=== PATIENT | female | born 1990 | race Two or more races ===

== ENCOUNTER 2017-01-10 20:52 | Inpatient (IN) | payer OTHER ==
[~2017-01-10] VITALS: Ht 157.5 cm; Wt 40.4 kg
[2017-01-10] MEDS ORDERED: IV NS 0.9% 1,000 ML BAG IV ONE ×2 (21:30→22:30)
[2017-01-10] MEDS ORDERED: IV SET PRIMARY 1 EA INFUS.SET MC ONE ×2 (21:35→22:55)
[2017-01-10] MEDS ORDERED: IV NS 0.9% 1,000 ML ONE ×2 (21:36→22:55)
[2017-01-10] MEDS ORDERED: AZITHROMYCIN 500 MG in IV D5W 250 ML IV ONE (22:30)
[2017-01-10] MEDS ORDERED: CEFTRIAXONE 1 G in IV D5W 50 ML IV ONE (22:30)
[2017-01-10] MEDS ORDERED: IV D5W 50 ML IV ONE (22:55)
[2017-01-10] MEDS ORDERED: IV SET PRIMARY PUMP SET 1 EA INFUS.SET MC ONE ×2 (22:55→23:25)
[2017-01-10] MEDS ORDERED: CEFTRIAXONE 1 G VIAL ONE (22:55)
[2017-01-10] MEDS ORDERED: diphenhydrAMINE HCL 50 MG/ML VIAL ONE (23:13)
[2017-01-10 23:17] LABS: BASOPHILS % (AUTO) 0.3 % (0.0-2.0); DIFF TOTAL % 100 %; EOSINOPHILS % (AUTO) 0.8 % (0.0-6.0); HEMATOCRIT 41 % (33-45); HEMOGLOBIN 13.7 g/dL (11.5-14.8); LYMPHOCYTES # (AUTO) 1.1 /CMM (0.8-4.8); LYMPHOCYTES % (AUTO) 22.5 % (20.0-44.0); MEAN CORPUSCULAR HEMOGLOBIN 30 PG (26.0-33.0); MEAN CORPUSCULAR HGB CONC 34 g/dl (31.0-36.0); MEAN CORPUSCULAR VOLUME 88 fL (82-100); MONOCYTES # (AUTO) 0.3 /CMM (0.1-1.30); MONOCYTES % (AUTO) 6.1 % (2.0-12.0); NEUTROPHILS # (AUTO) 3.5 /CMM (1.8-8.9); NEUTROPHILS % (AUTO) 70.3 % (43.0-81.0); PLATELET COUNT (AUTO) 161 /CMM (150-450); RED BLOOD CELL COUNT(AUTO) 4.64 MIL/uL (4.0-5.2)
[2017-01-10 23:20] LABS: CALCIUM, SERUM 8.7 mg/dL (8.5-10.1); CREATININE 0.6 mg/dL (0.6-1.3); POTASSIUM 3.9 mmol/L (3.5-5.1)
[2017-01-10] MEDS ORDERED: AZITHROMYCIN 500 MG VIAL ONE (23:25)
[2017-01-10] MEDS ORDERED: IV D5W 250 ML IV ONE (23:25)
[2017-01-10 23:26] LABS: ALBUMIN 3.5 g/dL (3.4-5.0); BILIRUBIN,DIRECT 0.1 mg/dL (0.0-0.2); BILIRUBIN,TOTAL 0.3 mg/dL (0.2-1.0); INDIRECT BILIRUBIN 0.2 mg/dL (0.0-1.1); TOTAL PROTEIN, SERUM 7.6 g/dL (6.4-8.2)
[2017-01-10] MEDS ORDERED: diphenhydrAMINE HCL 50 MG/ML VIAL IV ONE (23:30)
[2017-01-10 23:31] LABS: LACTIC ACID 0.8 mmol/L (0.4-2.0)
[2017-01-10] MEDS ORDERED: IV NS 0.9% 1,000 ML IV PRN (23:37)
[2017-01-10] MEDS ORDERED: ONDANSETRON HCL/PF 4 MG/2 ML VIAL ONE (23:49)
[2017-01-11] MEDS ORDERED: ZOLPIDEM TARTRATE 5 MG TABLET PO PRN
[2017-01-11] MEDS: AZITHROMYCIN 500 MG in IV D5W 250 ML IV SCH ×2
[2017-01-11] MEDS: CEFTRIAXONE 1 G in IV D5W 50 ML IV SCH ×2
[2017-01-11] MEDS ORDERED: MAGNESIUM HYDROXIDE 30 ML UDC PO PRN
[2017-01-11] MEDS ORDERED: Z GUARD REMEDY 2 OZ OINT TP PRN
[2017-01-11] MEDS ORDERED: HYDROCODONE/APAP 5/325MG 1 EACH TABLET PO PRN
[2017-01-11] MEDS ORDERED: MAG HYDROX/AL HYDROX/SIMETH 30 ML UDC PO PRN
[2017-01-11] MEDS ORDERED: ONDANSETRON HCL/PF 4 MG/2 ML VIAL IVP PRN
[2017-01-11 00:30] VITALS: BP 105/64
[2017-01-11] MEDS ORDERED: ONDANSETRON HCL/PF 4 MG/2 ML VIAL IV ONE (00:30)
[2017-01-11] MEDS ORDERED: IV NS 0.9% 1,000 ML ONE (00:37)
[2017-01-11] MEDS ORDERED: IV SET PRIMARY PUMP SET 1 EA INFUS.SET MC ONE (00:37)
[2017-01-11] MEDS ORDERED: ACETAMINOPHEN 325 MG TABLET ONE (01:15)
[2017-01-11] MEDS: ACETAMINOPHEN 325 MG TABLET PO PRN ×3 (01:18→21:59)
[2017-01-11 08:00] VITALS: BP 91/56
[2017-01-11 09:12] LABS: BASOPHILS % (AUTO) 0.2 % (0.0-2.0); DIFF TOTAL % 100 %; EOSINOPHILS % (AUTO) 0.8 % (0.0-6.0); HEMATOCRIT 36 % (33-45); HEMOGLOBIN 12.3 g/dL (11.5-14.8); LYMPHOCYTES # (AUTO) 1.2 /CMM (0.8-4.8); LYMPHOCYTES % (AUTO) 26.8 % (20.0-44.0); MEAN CORPUSCULAR HEMOGLOBIN 29 PG (26.0-33.0); MEAN CORPUSCULAR HGB CONC 34 g/dl (31.0-36.0); MEAN CORPUSCULAR VOLUME 87 fL (82-100); MONOCYTES # (AUTO) 0.5 /CMM (0.1-1.30); MONOCYTES % (AUTO) 11.2 % (2.0-12.0); NEUTROPHILS # (AUTO) 2.8 /CMM (1.8-8.9); PLATELET COUNT (AUTO) 166 /CMM (150-450); RED BLOOD CELL COUNT(AUTO) 4.18 MIL/uL (4.0-5.2); WHITE BLOOD COUNT (AUTO) 4.5 K/uL (4.3-11.0)
[2017-01-11 09:31] LABS: ALBUMIN 2.7 g/dL (3.4-5.0); BILIRUBIN,TOTAL 0.3 mg/dL (0.2-1.0); CALCIUM, SERUM 8.2 mg/dL (8.5-10.1); CREATININE 0.5 mg/dL (0.6-1.3); PHOSPHORUS 3.3 mg/dL (2.5-4.9); POTASSIUM 3.6 mmol/L (3.5-5.1); TOTAL PROTEIN, SERUM 6.2 g/dL (6.4-8.2)
[2017-01-11 09:35] LABS: THYROID STIMULATING HORMONE 0.792 uIU/mL (0.358-3.74)
[2017-01-11] MEDS ORDERED: IV NS 0.9% 1,000 ML IV PRN (12:00)
[2017-01-11] MEDS ORDERED: SECONDARY IV SET 1 EA INFUS.SET MC ONE (12:28)
[2017-01-11] MEDS: IV NS 0.9% 1,000 ML IV PRN (13:49)
[2017-01-11 16:00] VITALS: BP 95/61
[2017-01-11 20:00] VITALS: BP 98/68
[2017-01-12] MEDS ORDERED: SECONDARY IV SET 1 EA INFUS.SET MC ONE (00:03)
[2017-01-12] MEDS: CEFTRIAXONE 1 G in IV D5W 50 ML IV SCH ×2 (00:37→23:37)
[2017-01-12] MEDS: AZITHROMYCIN 500 MG in IV D5W 250 ML IV SCH ×2 (01:18→23:37)
[2017-01-12] MEDS: IV NS 0.9% 1,000 ML IV PRN ×3 (01:18→23:38)
[2017-01-12 08:00] VITALS: BP 96/52
[2017-01-12 16:00] VITALS: BP_SYST 105; BP_SYST 110; BP_DIAS 48; BP_DIAS 73
[2017-01-12] MEDS: LACTOBACILLUS RHAMNOSUS GG 1 EACH CAP.SPRINK PO SCH (17:02)
[2017-01-12 20:00] VITALS: BP_SYST 100; BP_DIAS 61; BP_DIAS 64
[2017-01-12] MEDS: ACETAMINOPHEN 325 MG TABLET PO PRN (20:29)
[2017-01-13 08:00] VITALS: BP 86/49
[2017-01-13 08:08] LABS: ALBUMIN 2.7 g/dL (3.4-5.0); BILIRUBIN,TOTAL 0.2 mg/dL (0.2-1.0); TOTAL PROTEIN, SERUM 6.2 g/dL (6.4-8.2)
[2017-01-13] MEDS: LACTOBACILLUS RHAMNOSUS GG 1 EACH CAP.SPRINK PO SCH (08:14)
[2017-01-13 08:19] LABS: BILIRUBIN,DIRECT 0.1 mg/dL (0.0-0.2); INDIRECT BILIRUBIN 0.1 mg/dL (0.0-1.1)
[2017-01-13] MEDS: ACETAMINOPHEN 325 MG TABLET PO PRN (12:10)
[2017-01-14 04:29] LABS: HEPATITIS C VIRUS AB <0.1 s/co ratio (0.0-0.9)
[2017-01-14 08:12] LABS: HEPATITIS Be AG Negative (Negative)
[2017-01-14 11:33] LABS: HEPATITIS Be AB Negative (Negative)
== END 2017-01-13 12:25 | disposition home or self-care (01) | DRG 871 ==
LOC: ER 20:56 → MED 01-11 00:08
PROVIDERS: ADMIT Contractor; ATTEND Contractor
DX: A41.9 Sepsis, unspecified organism (principal); J15.9 Unspecified bacterial pneumonia; E44.0 Moderate protein-calorie malnutrition; J90 Pleural effusion, not elsewhere classified; Z68.1 Body mass index [BMI] 19.9 or less, adult; J40 Bronchitis, not specified as acute or chronic; R74.0 Nonspecific elevation of levels of transaminase and lactic acid dehydrogenase [LDH]
CPT/HCPCS: 36415; 71010-TC; 76705-TC; 80048-TC; 80053-TC; 80061-TC; 80076-TC; 83605-TC; 83735-TC; 84100-TC; 84443-TC; 84703-TC; 85025-TC; 86632; 86704; 86705; 86706; 86707; 86709; 86709-TC; 86738; 86803; 87040-TC; 87081-TC; 87350; 87400; A4606; J0456; J0696; J1200; J2405; J7030; J7060; Z7610

== ENCOUNTER 2017-01-20 20:17 | Emergency (ER) | payer OTHER ==
[~2017-01-20] VITALS: Ht 154.9 cm; Wt 40.8 kg
[2017-01-20 21:44] VITALS: BP 112/68
== END 2017-01-20 21:45 | disposition home or self-care (01) ==
LOC: ER 20:17
DX: J18.9 Pneumonia, unspecified organism (principal); Z98.890 Other specified postprocedural states
CPT/HCPCS: 71010; 99283; A4606; Z7610

== ENCOUNTER 2017-12-16 19:34 | Emergency (ER) | payer OTHER ==
[~2017-12-16] VITALS: Ht 154.9 cm; Wt 43.1 kg
[2017-12-16 19:47] VITALS: BP 97/68
--- NOTE | 2017-12-16 20:15 | NUR ---
URINE COLLECTED SENT TO LAB
== END 2017-12-16 21:13 | disposition home or self-care (01) ==
LOC: ER 19:35
DX: R05 Cough (principal); Z32.01 Encounter for pregnancy test, result positive
CPT/HCPCS: 84703; 99282; A4606; Z7610

== ENCOUNTER 2018-03-03 14:06 | Emergency (ER) | payer OTHER ==
[~2018-03-03] VITALS: Ht 154.9 cm; Wt 40.4 kg
[2018-03-03] MEDS ORDERED: ONDANSETRON HCL/PF 4 MG/2 ML VIAL ONE (14:40)
[2018-03-03] MEDS ORDERED: ONDANSETRON HCL/PF 4 MG/2 ML VIAL IVP ONE (15:00)
[2018-03-03] MEDS ORDERED: IV NS 0.9% 1,000 ML BAG IV ONE ×2 (15:00)
[2018-03-03 15:01] LABS: CALCIUM, SERUM 9.2 mg/dL (8.5-10.1); CREATININE 0.4 mg/dL (0.6-1.3); POTASSIUM 3.4 mmol/L (3.5-5.1)
[2018-03-03] MEDS ORDERED: POTASSIUM CHLORIDE 20 MEQ TAB.PRT.SR PO ONE ×2 (16:00→16:04)
[2018-03-03 16:03] LABS: APPEARANCE,URINE Cloudy (CLEAR); BILIRUBIN,URINE Negative (NEGATIVE); BLOOD, URINE Negative Ery/uL (NEGATIVE); COLOR,URINE Yellow (YELLOW); KETONES,URINE 80 (NEGATIVE); LEUKOCYTE ESTERASE ,URINE Small (NEGATIVE); NITRITE, URINE Negative (NEGATIVE); PH,URINE 7.5 (5.0-8.0); PROTEIN,URINE 30 mg/dl (NEGATIVE); UGLUCOSE Negative (NEGATIVE); UROBILINOGEN,URINE 0.2 EU/dL (0.2)
[2018-03-03 16:25] LABS: BACTERIA,URINE Moderate /HPF (None Seen); RBC,URINE 0-2 /HPF (0-2); SQUAMOUS EPITHELIAL CELL,UR Moderate /HPF (None Seen)
[2018-03-03 16:26] LABS: URINE AMORPHOUS PHOSPHATES Many /HPF (None Seen)
[2018-03-03 16:58] VITALS: BP 110/79
== END 2018-03-03 16:59 | disposition home or self-care (01) ==
LOC: ER 14:11
DX: O21.1 Hyperemesis gravidarum with metabolic disturbance (principal); O99.282 Endocrine, nutritional and metabolic diseases complicating pregnancy, second trimester; E87.6 Hypokalemia; E86.0 Dehydration; R82.4 Acetonuria; Z3A.15 15 weeks gestation of pregnancy
CPT/HCPCS: 36415; 80048-TC; 81000-TC; 87086-TC; A4606; J2405; J7030; Z7610

== ENCOUNTER 2019-04-27 20:40 | Emergency (ER) | payer OTHER ==
[~2019-04-27] VITALS: Ht 154.9 cm; Wt 43.1 kg
[2019-04-27] MEDS ORDERED: IV NS 0.9% 1,000 ML BAG IV ONE (22:00)
[2019-04-27] MEDS ORDERED: KETOROLAC TROMETHAMINE INJ 30 MG/ML VIAL IV ONE (22:00)
[2019-04-27] MEDS ORDERED: PENICILLIN V POTASSIUM 500 MG TABLET PO ONE ×2 (22:00→23:17)
[2019-04-27] MEDS ORDERED: ONDANSETRON HCL/PF 4 MG/2 ML VIAL IV ONE (22:00)
[2019-04-27] MEDS ORDERED: DEXAMETHASONE SOD PHOSPHATE 10 MG/ML VIAL IV ONE (22:00)
[2019-04-27] MEDS ORDERED: ONDANSETRON HCL/PF 4 MG/2 ML VIAL ONE (22:43)
[2019-04-27] MEDS ORDERED: DEXAMETHASONE SOD PHOSPHATE 10 MG/ML VIAL ONE (23:16)
[2019-04-27] MEDS ORDERED: KETOROLAC TROMETHAMINE 15 MG/ML VIAL ONE (23:16)
--- NOTE | 2019-04-27 23:43 | NUR ---
PT OK TO DISCHARGE HOME PER VELIA SHAW. IV removed. Catheter intact and site benign. Pressure and 4x4 applied to site. No bleeding noted.Patient discharged to home in stable condition. Written and verbal after care instructions given. Patient verbalizes understanding of instruction.Patient is awake and alert to self, day, and place. pT ambulatory with a steady gait
[2019-04-27 23:44] VITALS: BP 112/65
== END 2019-04-27 23:45 | disposition home or self-care (01) ==
LOC: ER 20:41
DX: J02.0 Streptococcal pharyngitis (principal); R11.2 Nausea with vomiting, unspecified; H92.01 Otalgia, right ear; Z98.890 Other specified postprocedural states
CPT/HCPCS: 36415; 84702; 84703; 96361; 96374; 96375; 99283; J1100; J1885; J2405; J7030

== ENCOUNTER 2022-05-17 15:12 | Emergency (ER) | payer OTHER ==
[~2022-05-17] VITALS: Ht 154.9 cm; Wt 45.4 kg
[2022-05-17 15:27] VITALS: BP 103/65
--- NOTE | 2022-05-17 15:30 | NUR ---
BIBS FOR COUGH X 2 WEEKS. OXYGEN SATURATION IN ROOM AIR IS AT 98%. RESPIRATION REGULAR AND UNLABORED. WILL CONTINUE TO MONITOR THE PATIENT.
[2022-05-17] MEDS ORDERED: PRED20TA PO (17:11)
[2022-05-17] MEDS ORDERED: BENZ-13 PO (17:11)
[2022-05-17] MEDS ORDERED: ALBU18HF2 INH (17:11)
--- NOTE | 2022-05-17 17:28 | NUR ---
Patient discharged to home in stable condition. Written and verbal after care instructions given. Patient verbalizes understanding of instruction.
== END 2022-05-17 17:28 | disposition home or self-care (01) ==
LOC: ER 15:15
DX: R05.9 Cough, unspecified (principal); Z98.890 Other specified postprocedural states; Z79.899 Other long term (current) drug therapy
CPT/HCPCS: 71045-TC

== ENCOUNTER 2022-10-10 21:22 | Inpatient (IN) | payer OTHER ==
[~2022-10-10] VITALS: Ht 157.5 cm; Wt 48.5 kg
[~2022-10-10 21:22] MED LIST: ALBU18HF2 INH; BENZ-13 PO; PRED20TA PO
--- NOTE | 2022-10-10 21:27 | NUR ---
[id number]. SOB X 2 HRS, BACK PAIN AND FEVER. FLU LIKE SYMPTOMS X2 DAYS. NOTED TACHY AND HYPOTENSIVE TESTED COVID NEGATIVE TODAY AT HOME. PT A/OX4. TOLERATING R/A AT 98%. CONNECTED PT TO POX AND MONITOR. SAFETY MEASURES IN PLACE.
--- NOTE | 2022-10-10 21:49 | NUR ---
COVID ANTIGEN SWAB AND INFLUENZA SWAB COLLECTED AND SENT TO LAB
[2022-10-10] MEDS ORDERED: KETOROLAC TROMETHAMINE 15 MG/ML VIAL ONE (21:51)
--- NOTE | 2022-10-10 21:55 | NUR ---
WAIVER FOR SIGNED; PT VERBALIZED UNDERSTANDING. NOTIFIED RADIOLOGY
--- NOTE | 2022-10-10 21:59 | NUR ---
DIRECTOR OF NURSES REGISTRY AT PT'S BEDSIDE
[2022-10-10] MEDS ORDERED: IV NS 0.9% 1,000 ML IV ONE (22:00)
[2022-10-10] MEDS ORDERED: KETOROLAC TROMETHAMINE INJ 30 MG/ML VIAL IV ONE (22:00)
--- NOTE | 2022-10-10 22:00 | NUR ---
Note undone in EDM - 10/10/22 at 2201 by RICARDO [id number]. SOB X 2 HRS, BACK PAIN AND FEVER. FLU LIKE SYMPTOMS X2 DAYS. NOTED TACHY AND HYPOTENSIVE TESTED COVID NEGATIVE TODAY AT HOME. PT A/OX4. TOLERATING R/A AT 98%. CONNECTED PT TO POX AND MONITOR. SAFETY MEASURES IN PLACE.
[2022-10-10 22:18] LABS: HEMATOCRIT 39 % (33-45); LYMPHOCYTES # (AUTO) 0.3 K/uL (0.8-4.8); LYMPHOCYTES % (AUTO) 3.9 % (20.0-44.0); MEAN CORPUSCULAR HGB CONC 33 g/dl (31.0-36.0); MEAN CORPUSCULAR VOLUME 87 fL (82-100); MONOCYTES # (AUTO) 0.3 K/uL (0.1-1.30); MONOCYTES % (AUTO) 4.2 % (2.0-12.0); NEUTROPHILS # (AUTO) 7.1 K/uL (1.8-8.9); NEUTROPHILS % (AUTO) 91.9 % (43.0-81.0); PLATELET COUNT (AUTO) 120 K/uL (150-450); WHITE BLOOD COUNT (AUTO) 7.8 K/uL (4.3-11.0)
[2022-10-10 22:45] LABS: CALCIUM, SERUM 8.6 mg/dL (8.5-10.1); CREATININE 0.8 mg/dL (0.6-1.3); POTASSIUM 3.6 mmol/L (3.5-5.1)
[2022-10-10] MEDS ORDERED: IOHEXOL-350 100 ML VIAL IV ONE (22:47)
[2022-10-10] MEDS ORDERED: CT SWABBABLE VALVE TRANS SET 1 EA INFUS.SET MC ONE (22:48)
[2022-10-10] MEDS ORDERED: IV NS 0.9% 250 ML IV ONE (22:48)
--- NOTE | 2022-10-10 22:48 | NUR ---
PT TOLERATING R/A AT 90% WITH SOB & LABORED BREATHING. PUT ON O2 N/C AT 3LPM SATTING AT 95%. WILL REASSESS
[2022-10-10] MEDS ORDERED: IV NS 0.9% 500 ML IV ONE (23:00)
[2022-10-10] MEDS ORDERED: MORPHINE SULFATE INJ 2 MG/ML DISP.SYRIN IV ONE (23:00)
[2022-10-10] MEDS ORDERED: MORPHINE SULFATE INJ 4 MG/ML DISP.SYRIN ONE (23:04)
--- NOTE | 2022-10-10 23:07 | NUR ---
PT TAKEN TO CT VIA [facility]
--- NOTE | 2022-10-10 23:15 | NUR ---
PT RETURNED TO ER BED [address]
--- NOTE | 2022-10-10 23:30 | NUR ---
CALLED LAB TO F/U WITH INFLUENZA SWAB RESULT
[2022-10-10] MEDS ORDERED: CEFTRIAXONE 1GM BAG (ER ONLY) 50 ML IV ONE (23:41)
[2022-10-10] MEDS ORDERED: AZITHROMYCIN 500 MG VIAL ONE (23:42)
[2022-10-11] VITALS (23 sets, daily range): BP systolic 85–103; BP diastolic 48–67
[2022-10-11] MEDS ORDERED: ONDANSETRON HCL/PF 4 MG/2 ML VIAL IVP PRN
[2022-10-11] MEDS ORDERED: CEFTRIAXONE 1GM BAG (ER ONLY) 1 GM/50 ML PIGGYBACK IV ONE
[2022-10-11] MEDS ORDERED: AZITHROMYCIN 500 MG in IV D5W 250 ML IV ONE ×2
[2022-10-11] MEDS ORDERED: ALBUTEROL FS 2.5 MG/0.5 ML VIAL.NEB NEB PRN
--- NOTE | 2022-10-11 00:03 | NUR ---
POLICE RECORDS CLERK AT PT'S BEDSIDE
--- NOTE | 2022-10-11 00:24 | NUR ---
COVID PCR SWAB COLLECTED AND SENT TO LAB
--- NOTE | 2022-10-11 00:52 | NUR ---
REPORT GIVEN TO ZELDA De Leon RN FOR ELYSSA
[2022-10-11] MEDS ORDERED: CEFEPIME 2 GM in IV D5W 100 ML IV ONE ×2 (01:00→05:00)
[2022-10-11] MEDS: IV NS 0.9% 1,000 ML IV SCH ×3 (01:11→15:40)
--- NOTE | 2022-10-11 01:15 | NUR ---
RN NOTE 0115 RECEIVED 32 Y/O F PATIENT FROM ER. TRANSFERRED VIA GURNEY ACCOMPANIED BY 2 ER STAFF. PT IS A/O X4 ABLE TO MAKE NEEDS KNOWN. ON O2 VIA NC AT 2LPM. NO ACUTE DISTRESS NOTED, ADMISSION CARE RENDERED, SKIN IS INTACT, IV ACCESS ON RAC INTACT, PATENT AND FLUSHING WELL. PT AMBULATES WITH ASSIST. 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 CALLED ER STAFF, BELONGINGS NOT FOUND. SAFETY MEASURES IN PLACED, BED IN LOWEST AND LOCKED POSITION, CALL LIGHT WITHIN REACH AND INSTRUCTED TO CALL FOR ASSISTANCE, BED ALARM ON, WILL CONTINUE TO MONITOR THROUGHOUT THE SHIFT. Addendum: 10/11/22 at 0632 by ZELDA PARRISH RN V/S TAKEN AT 87/52, 109 HR, 18, 98.1, 97%
--- NOTE | 2022-10-11 01:22 | NUR ---
PT TRANSFERRED TO [facility] VIA ACLS PROTOCOL
[2022-10-11] MEDS ORDERED: IPRATROPIUM/ALBUTEROL INHALER IH SCH (01:30)
[2022-10-11] MEDS: methylPREDNISolone SOD SUCC 40 MG/ML VIAL IV SCH ×2 (02:06→05:16)
--- NOTE | 2022-10-11 02:25 | NUR ---
RN NOTE NOTED PT BP AT 87/52 AND RECEIVED CRITICAL RESULT FROM LAB OF PROCALCITONIN 3.22. GENERAL MANAGER DR. COBB MADE AWARE. HE THEN ORDERED NS 1L BOLUS AND MIDODRINE 10 MG PO ONCE. ORDER TAKEN AND CARRIED OUT. WILL CONT TO MONITOR.
[2022-10-11] MEDS ORDERED: IV NS 0.9% 1,000 ML IV ONE ×3 (02:30→04:20)
[2022-10-11] MEDS ORDERED: MIDODRINE HCL (5MG) 5 MG TABLET PO ONE (02:30)
--- NOTE | 2022-10-11 04:08 | NUR ---
RN NOTE NOTED PT BP AT 84/47 AFTER 1L BOLUS OF NS AND MIDODRINE 10 MG PO. SAW CLEANER BERJ ORDERED ONE MORE BOLUS OF 1L NS. UPGRADE TO ICU AND START LEVOPHED IF IT DOESN'T WORK. ORDER TAKEN AND CARRIED OUT.
[2022-10-11] MEDS ORDERED: CEFEPIME 1 GM VIAL ONE (05:21)
--- NOTE | 2022-10-11 05:50 | NUR ---
RN NOTE REPORT GIVEN TO HERNANDEZ ARANGO FOR CONTINUITY OF CARE.
[2022-10-11] MEDS ORDERED: NOREPINEPHRINE 8 MG in IV NS 0.9% 242 ML IV PRN ×2 (06:00→07:00)
--- NOTE | 2022-10-11 06:00 | NUR ---
RN NOTE BP STILL LOW AT 90/42. LEVOPHED ORDERED PHARMACY TO DOSE AND TRANSFER PATIENT TO ICU.
[2022-10-11 06:41] LABS: BASOPHILS # (AUTO) 0.1 K/uL (0.0-0.2); BASOPHILS % (AUTO) 0.7 % (0.0-2.0); HEMATOCRIT 33 % (33-45); LYMPHOCYTES # (AUTO) 0.2 K/uL (0.8-4.8); MEAN CORPUSCULAR HGB CONC 34 g/dl (31.0-36.0); MEAN CORPUSCULAR VOLUME 87 fL (82-100); MONOCYTES # (AUTO) 0.1 K/uL (0.1-1.30); MONOCYTES % (AUTO) 1.4 % (2.0-12.0); NEUTROPHILS # (AUTO) 8.9 K/uL (1.8-8.9); NEUTROPHILS % (AUTO) 95.9 % (43.0-81.0); PLATELET COUNT (AUTO) 113 K/uL (150-450); RED BLOOD CELL COUNT(AUTO) 3.76 MIL/uL (4.0-5.2); WHITE BLOOD COUNT (AUTO) 9.2 K/uL (4.3-11.0)
[2022-10-11 07:13] LABS: ALBUMIN 2.5 g/dL (3.4-5.0); BILIRUBIN,TOTAL 0.7 mg/dL (0.2-1.0); CALCIUM, SERUM 7.1 mg/dL (8.5-10.1); CREATININE 0.5 mg/dL (0.6-1.3); MAGNESIUM 1.4 mg/dL (1.8-2.4); PHOSPHORUS 2.1 mg/dL (2.5-4.9); POTASSIUM 3.4 mmol/L (3.5-5.1); TOTAL PROTEIN, SERUM 5.4 g/dL (6.4-8.2)
--- NOTE | 2022-10-11 07:15 | NUR ---
RN OPEN NOTE PATIENT IS ALERT , ORIENTED TIMES 4 ,VERY WEAK , PATIENT IS ON O2 2L ANC, O2 SAT 96 % , ON MONITOR ST 102, PATIENT CAN AMBULATE WITH ASSISTANCE WITH BATHROOM PRIVILEGE.PATIENT IS ON REGULAR DIET , HAS IV ACCESS ON RAC 20 G , N/S RUNNING AR 125 ML/HR PATIENT WAS TRANSFERRED TO THE ICU DUE TO LOW BP , AT THE TIME OF THE TRANSFER , PATIENT HAD BP 92/63 , HR 101.WILL CONTINUW TO MONITOR AND FALLOW POC.
[2022-10-11] MEDS: IPRATROPIUM NEB FS 0.5 MG/2.5 ML AMPUL.NEB NEB SCH ×3 (07:35→19:21)
[2022-10-11] MEDS: ALBUTEROL FS 2.5 MG/0.5 ML VIAL.NEB NEB SCH ×3 (07:35→19:21)
[2022-10-11] MEDS ORDERED: IV NS 0.9% 500 ML IV ONE (08:00)
[2022-10-11] MEDS ORDERED: POTASSIUM CHLORIDE 20 MEQ TAB.PRT.SR PO ONE (08:00)
[2022-10-11] MEDS: ACETAMINOPHEN 325 MG TABLET PO PRN (08:26)
[2022-10-11] MEDS: ENOXAPARIN SODIUM 40 MG/0.4 ML DISP.SYRIN SQ SCH (08:42)
[2022-10-11] MEDS: MORPHINE SULFATE INJ 2 MG/ML DISP.SYRIN IV PRN ×3 (09:27→18:59)
[2022-10-11] MEDS: LEVOFLOXACIN 750 MG /D5W 150ML 150 ML IV SCH (09:41)
[2022-10-11] MEDS: Magnesium 1GM/D5W 100ML PREMIX 100 ML IV SCH ×4 (11:03→14:29)
[2022-10-11] MEDS ORDERED: K PHOS NEUTRAL 250 MG TABLET PO ONE (13:00)
[2022-10-11] MEDS: CEFEPIME 2 GM in IV D5W 100 ML IV SCH ×2 (13:29→20:51)
--- NOTE | 2022-10-11 18:37 | NUR ---
RN CLOSING NOT PATIENT IS IB BED ALERT , ORIENTED TIMES 4 ,VERY WEAK , BUT ABLE TO AMBULATE TO THE RESTROOM WITH ASSISTANCE ,PATIENT IS ON O2 2L ANC, O2 SAT 96 % , ON MONITOR SR 87 PATIENT IS ON REGULAR DIET , HAS IV ACCESS ON RAC 20 G ,AND MID LINE 18 G RIGHT UPPER ARM WITH N/S RUNNING AR 125 ML/HR , ALL MEDICATIONS WERE ADMINISTERED ALL NEEDS WERE MET BED IS AT LOWEST POSITION , CALL LIGHT WITHIN REACH , BED SIDE RAILS ARE UP .WILL ENDORSE ENGINEERING SCIENTIST NURSE TO MONITOR AND FALLOW POC.
--- NOTE | 2022-10-11 19:30 | NUR ---
RN NOTE RECEIVED PT AWAKE, AOX4. ON O2 AT 2L VIA NC. SOME SOB WHEN COUGHING, NOT IN DISTRESS. O2 SAT AT 98%. AFEBRILE. PARKER ML AND RAC IV PATENT AND INTACT, NS RUNNING AT 125ML/HR. ALL SAFETY MEASURES IN PLACE PER PROTOCOL. CALL LIGHT WITHIN REACH. WILL CONTINUE TO MONITOR.
[2022-10-12] VITALS (24 sets, daily range): BP systolic 87–114; BP diastolic 52–77
[2022-10-12] MEDS: IV NS 0.9% 1,000 ML IV SCH ×2 (00:16→08:05)
[2022-10-12] MEDS: ACETAMINOPHEN 325 MG TABLET PO PRN ×2 (00:27→16:08)
[2022-10-12] MEDS: ALBUTEROL FS 2.5 MG/0.5 ML VIAL.NEB NEB SCH ×5 (01:03→19:43)
[2022-10-12] MEDS: IPRATROPIUM NEB FS 0.5 MG/2.5 ML AMPUL.NEB NEB SCH ×5 (01:03→19:43)
[2022-10-12] MEDS: CEFEPIME 2 GM in IV D5W 100 ML IV SCH ×3 (04:49→20:36)
[2022-10-12 05:31] LABS: HEMATOCRIT 31 % (33-45); HEMOGLOBIN 10.5 g/dL (11.5-14.8); LYMPHOCYTES # (AUTO) 1.2 K/uL (0.8-4.8); LYMPHOCYTES % (AUTO) 6.3 % (20.0-44.0); MEAN CORPUSCULAR HGB CONC 34 g/dl (31.0-36.0); MEAN CORPUSCULAR VOLUME 88 fL (82-100); MONOCYTES # (AUTO) 0.7 K/uL (0.1-1.30); NEUTROPHILS # (AUTO) 16.6 K/uL (1.8-8.9); NEUTROPHILS % (AUTO) 89.7 % (43.0-81.0); PLATELET COUNT (AUTO) 158 K/uL (150-450); RED BLOOD CELL COUNT(AUTO) 3.55 MIL/uL (4.0-5.2); WHITE BLOOD COUNT (AUTO) 18.5 K/uL (4.3-11.0)
[2022-10-12 05:41] LABS: CALCIUM, SERUM 7.3 mg/dL (8.5-10.1); CREATININE 0.6 mg/dL (0.6-1.3); PHOSPHORUS 2.9 mg/dL (2.5-4.9)
--- NOTE | 2022-10-12 07:00 | NUR ---
RN NOTE PT ABLE TO MAKE NEEDS KNOWN. PT O2 SAT 92 % AT 2L, TITRATED TO 4L, TOLERATING. PT WITH SOB WHEN COUGHING AND WALKING, ASSISTED TO RESTROOM. REMAIN AFEBRILE. SR ON TELE MONITOR WITH HR OF 64. HR GOES TO SB 55 WHEN SLEEPING. CONTINUE ON NS AT 125ML/HR, INFUSING WELL. ENDORSED TO ALDRED FOR ELYSSA.
--- NOTE | 2022-10-12 07:20 | NUR ---
REIMBURSEMENT COORDINATOR OPENING NOTE: RECEIVED PT. IN BED, AWAKE, AOX4. COMPLAINTS OF CHEST PAIN WHEN COUGHING AND 3/10 ACHING LOWER BACK PAIN, REFUSED PAIN MED FOR NOW. EDUCATED ON IMPORTANCE OF PAIN MANAGEMENT TIMING. AFEBRILE. VERBALIZED UNDERSTANDING. ON O2 VIA NASAL CANNULA AT 4L/MIN, SATURATING AT 98% AT THIS TIME. TACHYPNEIC AT 25 BPM. PRODUCT EVANGELIST READS NSR. HAS BATHROOM PRIVILEGE WITH ASSISTANCE. SKIN INTACT. IV ACCESS ON PARKER MIDLINE WITH NS RUNNING AT 125 ML/HR; R AC #20G, PATENT AND SALINE LOCKED. IV DRESSINGS C/D/I WITH NO S/S OF INFILTRATION NOTED. SAFETY MEASURES IN PLACE: BED IN LOWEST AND LOCKED POSITION, HOB ELEVATED AT 30 DEGREES, BED ALARM ON, SIDE RAILS UP X2, CALL LIGHT WITHIN REACH. WILL ENCOURAGE FREQUENT REPOSITIONING IN BED AT LEAST Q2H. WILL CONTINUE TO MONITOR FOR ANY CHANGES.
[2022-10-12] MEDS: ENOXAPARIN SODIUM 40 MG/0.4 ML DISP.SYRIN SQ SCH (08:06)
[2022-10-12] MEDS ORDERED: HYDROCODONE/APAP 5/325MG TABLET PO PRN (08:30)
[2022-10-12] MEDS: LEVOFLOXACIN 750 MG /D5W 150ML 150 ML IV SCH (09:08)
[2022-10-12] MEDS: DOCUSATE SODIUM 100 MG CAPSULE PO SCH ×2 (09:08→16:09)
--- NOTE | 2022-10-12 09:29 | NUR ---
ROOF FITTER NOTE: PT. COMPLAINED OF 7/10 ACHING LOWER BACK PAIN THAT SHE SAID "I THINK IT'S FROM COUGHING. MY BACK MUSCLES FEEL TIGHT" AT 0815. NORCO 5-325 GIVEN AT 0827. PT. NOW VERBALIZED PAIN RELIEF. WILL CONTINUE TO MONITOR PT.'S PAIN.
--- NOTE | 2022-10-12 16:10 | NUR ---
CYBER SOFTWARE ENGINEER NOTE: PT. COMPLAINED OF 3/10 ACHING LOWER BACK PAIN. TYLENOL 650 MG PO GIVEN. WILL CONTINUE TO MONITOR PT.'S PAIN.
--- NOTE | 2022-10-12 19:11 | NUR ---
LEAD ASSEMBLER CLOSING NOTE: PT. REMAINS IN BED, AWAKE, AOX4. NO COMPLAINTS OF PAIN/DISCOMFORT AT THIS TIME. GIVEN NORCO 5-325 AND TYLENOL 650MG THIS SHIFT FOR LOWER BACK PAIN. AFEBRILE THROUGHOUT SHIFT. REMAINS ON O2 VIA NASAL CANNULA AT 4L/MIN, SATURATING AT 95% AT THIS TIME. TACHYPNEIC AT 27 BPM. BUSINESS PROCESS REPRESENTATIVE READS NSR. HAS BATHROOM PRIVILEGE WITH ASSISTANCE. TOTAL URINE OUTPUT OF 1,150 ML CLEAR YELLOW URINE. PT. REMAINS WEAK TO GET OUT OF BED BY HERSELF WITH PERIODS OF DIZZINESS WHEN STANDING UP. IV ACCESS ON PARKER MIDLINE & R AC #20G, PATENT AND SALINE LOCKED. IV DRESSINGS C/D/I WITH NO S/S OF INFILTRATION NOTED. IV FLUID STOPPED AT [address] BEARD DUE TO INCREASED PULMONARY VASCULAR CONGESTION. ORAL INTAKE TOLERATING WELL WITH GOOD APPETITE. FAMILY BROUGHT FOOD FROM HOME FOR LUNCH AND WILL DO THE SAME FOR DINNER. SAFETY MEASURES MAINTAINED: BED IN LOWEST AND LOCKED POSITION, HOB ELEVATED AT 30 DEGREES, BED ALARM ON, SIDE RAILS UP X2, CALL LIGHT WITHIN REACH. ENCOURAGED FREQUENT REPOSITIONING IN BED AT LEAST Q2H. ENDORSED CONTINUITY OF CARE TO GLASS INSPECTOR RN.
--- NOTE | 2022-10-12 20:00 | NUR ---
Received patient AA/OX4.Afebrile SR in no acute distress.With O2 4LNC saturation 97%.Family here brought food from home.Ate with appetite.Independent with ADL.Safety precaution implemented. Continue to monitor.
[2022-10-13] VITALS (49 sets, daily range): BP systolic 81–156; BP diastolic 50–93
[2022-10-13] MEDS: ACETAMINOPHEN 325 MG TABLET PO PRN ×3 (00:09→18:37)
--- NOTE | 2022-10-13 01:00 | NUR ---
Patient medicated with tylenol for headache with relief.
[2022-10-13] MEDS: ALBUTEROL FS 2.5 MG/0.5 ML VIAL.NEB NEB SCH ×4 (01:30→19:30)
[2022-10-13] MEDS: IPRATROPIUM NEB FS 0.5 MG/2.5 ML AMPUL.NEB NEB SCH ×4 (01:30→19:30)
[2022-10-13] MEDS ORDERED: NOREPINEPHRINE 8MG/250ML RTU 250 ML IV ONE (03:06)
--- NOTE | 2022-10-13 03:10 | NUR ---
Patient hemodynamically unstable BP 81/50.Levophed gtt started 0.1 mcg per protocol.Will titrate accordingly.
[2022-10-13] MEDS: MORPHINE SULFATE INJ 2 MG/ML DISP.SYRIN IV PRN (03:41)
[2022-10-13] MEDS: CEFEPIME 2 GM in IV D5W 100 ML IV SCH ×3 (05:04→21:58)
[2022-10-13 05:11] LABS: BASOPHILS % (AUTO) 0.1 % (0.0-2.0); EOSINOPHILS % (AUTO) 0.2 % (0.0-6.0); HEMATOCRIT 32 % (33-45); HEMOGLOBIN 10.9 g/dL (11.5-14.8); LYMPHOCYTES # (AUTO) 1.8 K/uL (0.8-4.8); LYMPHOCYTES % (AUTO) 13.9 % (20.0-44.0); MEAN CORPUSCULAR HGB CONC 34 g/dl (31.0-36.0); MEAN CORPUSCULAR VOLUME 86 fL (82-100); MONOCYTES # (AUTO) 0.6 K/uL (0.1-1.30); MONOCYTES % (AUTO) 4.2 % (2.0-12.0); NEUTROPHILS # (AUTO) 10.8 K/uL (1.8-8.9); NEUTROPHILS % (AUTO) 81.6 % (43.0-81.0); PLATELET COUNT (AUTO) 169 K/uL (150-450); RED BLOOD CELL COUNT(AUTO) 3.73 MIL/uL (4.0-5.2); WHITE BLOOD COUNT (AUTO) 13.2 K/uL (4.3-11.0)
[2022-10-13 05:33] LABS: CALCIUM, SERUM 8.1 mg/dL (8.5-10.1); CREATININE 0.5 mg/dL (0.6-1.3); POTASSIUM 3.2 mmol/L (3.5-5.1)
--- NOTE | 2022-10-13 05:50 | NUR ---
0341 Patient anxious and complaints of [id number]/10 morphine administered as PRN. Patient sleeping after 30 min. during rounds.
--- NOTE | 2022-10-13 06:05 | NUR ---
Patient resting in no acute distress.VSS.Levophed gtt off at 0516.Ambulated 2x to restroom during the night with assistance.Voiding well.Due antibiotics administered.Kept comfortable.
[2022-10-13] MEDS ORDERED: POTASSIUM CHLORIDE 20 MEQ TAB.PRT.SR PO ONE (08:00)
--- NOTE | 2022-10-13 08:00 | NUR ---
RN NOTES RECEIVED PATIENT A/O X4, ON O2-5L, PATIENT COUGHING , INFUSING TKO @10ML/HR, STARTED SCHEDULED MEDICATION, PATIENT NEED MINIMAL ASSIST TO THE BATHROOM, WAS COMPLAINING OF HEADACHE. TOLERATED BREAKFAST 25%, CALL LIGHT WITHIN TO REACH. WILL FOLLOW UP.
[2022-10-13] MEDS: ENOXAPARIN SODIUM 40 MG/0.4 ML DISP.SYRIN SQ SCH (08:11)
[2022-10-13] MEDS: DOCUSATE SODIUM 100 MG CAPSULE PO SCH ×2 (08:11→17:01)
--- NOTE | 2022-10-13 11:41 | NUR ---
rn notes administered Tylenol 650 mg/dl for headache, and get order zofran 4 mg/ml for nausea. will follow up.
[2022-10-13] MEDS ORDERED: ONDANSETRON HCL/PF 4 MG/2 ML VIAL IV PRN (12:00)
[2022-10-13] MEDS: LEVOFLOXACIN 750 MG /D5W 150ML 150 ML IV SCH (12:17)
[2022-10-13] MEDS ORDERED: POLYETHYLENE GLYCOL 3350 17 GM POWD.PACK PO PRN (13:00)
--- NOTE | 2022-10-13 18:37 | NUR ---
RN NOTES ADMINISTERED TYLENOL 650 MG PO PRN FOR HEADACHE PER PATIENT REQUEST, PATIENT ON O2-2LNC, NO ACUTE RESPIRATORY DISTRESS, VSS. AMBULATING IN THE ROOM WITHOUT ASSIST. DUE MEDICATION ADMINISTERED, PM CARE DONE. CALL LIGHT WITHIN TO REACH. PATIENT TOLERATED DINNER 35% SELF. ENDORSED ONCOMING NURSE ELYSSA.
--- NOTE | 2022-10-13 20:00 | NUR ---
RN NOTE RECEIVED PT AWAKE ALERT AND ORIENTED. ON O2 AT 2L VIA NC. DENIES ANY SOB OR PAIN AT THIS TIME. SR ON TELE MONITOR. NON PRODUCTIVE COUGH NOTED, AFEBRILE. ALL SAFETY MEASURES IN PLACE. WILL CONTINUE TO MONITOR.
[2022-10-13] MEDS: POLYETHYLENE GLYCOL 3350 17 GM POWD.PACK PO SCH (21:59)
[2022-10-14] VITALS (16 sets, daily range): BP systolic 90–111; BP diastolic 52–75
[2022-10-14] MEDS: ALBUTEROL FS 2.5 MG/0.5 ML VIAL.NEB NEB SCH ×4 (01:30→19:30)
[2022-10-14] MEDS: IPRATROPIUM NEB FS 0.5 MG/2.5 ML AMPUL.NEB NEB SCH ×4 (01:30→19:30)
[2022-10-14] MEDS: ACETAMINOPHEN 325 MG TABLET PO PRN ×2 (02:42→14:06)
--- NOTE | 2022-10-14 03:30 | NUR ---
RN NOTE PT COMPLAINED OF HEADACHE. TYLENOL GIVEN ORDERED WITH RELIEF. PT SLEEPING NOW.
[2022-10-14] MEDS: CEFEPIME 2 GM in IV D5W 100 ML IV SCH ×3 (05:32→20:10)
--- NOTE | 2022-10-14 06:44 | NUR ---
RN NOTE PT ABLE TO TOLERATES O2 AT 2L, O2 SAT AT 98%. NO SIGNS OF DISTRESS NOTED. DENIES SOB OR PAIN AT THIS TIME. ALL DUE MEDS WERE GIVEN ORDERED. CONTINUE ON ATBS. AFEBRILE. ASSISTED TO RESTROOM. ALL SAFETY REMAIN IN PLACE. WILL ENDORSE TO AM SHIFT NURSE FOR ELYSSA.
--- NOTE | 2022-10-14 08:00 | NUR ---
rn notes Seen patient still coughing, t-97.4F, Hr- 76 sinus. reviewed lab values stable, collected UA clean catch, due medication administered, am care done, patient tolerated breakfast 30%. Seen hospitalist new order is continued monitoring, waiting pcr result of covid. call light within to reach. will follow up.
[2022-10-14] MEDS: DOCUSATE SODIUM 100 MG CAPSULE PO SCH ×2 (08:55→16:31)
[2022-10-14] MEDS: ENOXAPARIN SODIUM 40 MG/0.4 ML DISP.SYRIN SQ SCH (08:56)
[2022-10-14] MEDS: LEVOFLOXACIN 750 MG /D5W 150ML 150 ML IV SCH (09:06)
[2022-10-14 09:07] LABS: *ANA ANTI-CENTROMERE B AB <0.2 AI (0.0-0.9); *ANA ANTI-DNA(DS) AB, QN 6 IU/mL (0-9); *ANA ANTI-JO-1 <0.2 AI (0.0-0.9); *ANA ANTICHROMATIN ANTIBODY <0.2 AI (0.0-0.9); *ANA RNP ANTIBODIES <0.2 AI (0.0-0.9); *ANA SJOGREN'S ANTI-SS-A <0.2 AI (0.0-0.9); *ANA SJOGREN'S ANTI-SS-B 5.3 AI (0.0-0.9); *ANAANTI-SCLERODERMA-70 AB <0.2 AI (0.0-0.9); *ANASMITH AB <0.2 AI (0.0-0.9)
[2022-10-14 09:24] LABS: CALCIUM, SERUM 8.9 mg/dL (8.5-10.1); CREATININE 0.6 mg/dL (0.6-1.3); POTASSIUM 3.8 mmol/L (3.5-5.1)
--- NOTE | 2022-10-14 10:29 | NUR ---
RN NOTES GET ORDER TO TRANSFER PATIENT TO THE TELE UNIT ROOM 113 BED 1.
--- NOTE | 2022-10-14 11:10 | NUR ---
rn notes transferred patient within stable condition to the tele unit room 113 bed 1 . Bedside report given RN follow plan of care.
--- NOTE | 2022-10-14 11:23 | NUR ---
RN NOTE PATIENT WAS TRANSFERED FROM ICU .PATIENT IS ALERT , ORIENTED TIMES 4.ON O2 2L , PATRICE N/C, TOLERATING WELL , NO S/S OF DISTRESS. PATIENT HAS MID LINE ON PARKER 18 G , PATIENT CAN AMBULATE TO THE RESTROOM [place] ASSISTANCE , NO OPEN WOUNDS NOTED .PATIENT IS ON REGULAR DIET , ON TELE MONITOR SR , WILL CONTINUE TO MONIOTR AND FALLOW THE POC
[2022-10-14 11:24] LABS: BASOPHILS % (AUTO) 0.2 % (0.0-2.0); EOSINOPHILS % (AUTO) 1.2 % (0.0-6.0); HEMATOCRIT 37 % (33-45); HEMOGLOBIN 12.6 g/dL (11.5-14.8); LYMPHOCYTES # (AUTO) 1.6 K/uL (0.8-4.8); LYMPHOCYTES % (AUTO) 22.1 % (20.0-44.0); MEAN CORPUSCULAR HGB CONC 34 g/dl (31.0-36.0); MEAN CORPUSCULAR VOLUME 86 fL (82-100); MONOCYTES # (AUTO) 0.5 K/uL (0.1-1.30); MONOCYTES % (AUTO) 6.7 % (2.0-12.0); NEUTROPHILS % (AUTO) 69.8 % (43.0-81.0); PLATELET COUNT (AUTO) 231 K/uL (150-450); RED BLOOD CELL COUNT(AUTO) 4.33 MIL/uL (4.0-5.2); WHITE BLOOD COUNT (AUTO) 7.2 K/uL (4.3-11.0)
--- NOTE | 2022-10-14 18:34 | NUR ---
RN CLOSING NOTE NOTE PATIENT IS ALERT , ORIENTED TIMES 4.ON O2 2L , PATRICE N/C, TOLERATING WELL, O2 SAT 97 % , NO S/S OF DISTRESS. PATIENT HAS MID LINE ON PARKER 18 G , PATIENT CAN AMBULATE TO THE RESTROOM WITH ASSISTANCE , NO OPEN WOUNDS NOTED .PATIENT IS ON REGULAR DIET , ON TELE MONITOR SR , ALL MEDICATIONS WERE ADMINISTERD ALL NEEDS WERE MET .WILL ENDORSE DECONTAMINATION WORKER NURSE AND FALLOW WITH THE POC
--- NOTE | 2022-10-14 19:35 | NUR ---
RN OPENING NOTES: RECEIVED PATIENT IN BED, AWAKE, ALERT/ORIENTED X4 AND VERBALLY RESPONSIVE. ON O2 AT 2L/MIN VIA N/C AND PT TOLERATED WELL. BREATHING EVEN AND UNLABORED. IV ACCES ON PARKER MIDLINE#18G INTACT AND PATIENT. NO S/S OF INFILTRATIONS. NO C/O PAIN OR DISCOMFORT. NO ACUTE DISTRESS. ABLE TO AMBULATE TO THE RESTROOM WITH ASSISTANCE. ALL SAFETY MEASURES IN PLACE. SIDE RAILS UP X2, BED IN LOWEST POSITION AND LOCKED. PLACE CALL LIGHT WITH IN REACH. WILL CONTINUE TO MONITOR
[2022-10-14] MEDS: POLYETHYLENE GLYCOL 3350 17 GM POWD.PACK PO SCH (22:07)
[2022-10-15] VITALS: BP 91/70
[2022-10-15] MEDS: IPRATROPIUM NEB FS 0.5 MG/2.5 ML AMPUL.NEB NEB SCH ×3 (01:30→13:19)
[2022-10-15] MEDS: ALBUTEROL FS 2.5 MG/0.5 ML VIAL.NEB NEB SCH ×3 (01:30→13:19)
[2022-10-15 04:00] VITALS: BP 98/64
[2022-10-15] MEDS: CEFEPIME 2 GM in IV D5W 100 ML IV SCH ×2 (04:13→12:10)
[2022-10-15 05:57] LABS: BASOPHILS % (AUTO) 0.3 % (0.0-2.0); HEMATOCRIT 39 % (33-45); HEMOGLOBIN 13.1 g/dL (11.5-14.8); LYMPHOCYTES # (AUTO) 2.1 K/uL (0.8-4.8); LYMPHOCYTES % (AUTO) 25.9 % (20.0-44.0); MEAN CORPUSCULAR HGB CONC 33 g/dl (31.0-36.0); MEAN CORPUSCULAR VOLUME 86 fL (82-100); MONOCYTES # (AUTO) 0.8 K/uL (0.1-1.30); MONOCYTES % (AUTO) 9.8 % (2.0-12.0); PLATELET COUNT (AUTO) 270 K/uL (150-450); RED BLOOD CELL COUNT(AUTO) 4.57 MIL/uL (4.0-5.2); WHITE BLOOD COUNT (AUTO) 8.1 K/uL (4.3-11.0)
[2022-10-15 06:23] LABS: CALCIUM, SERUM 8.6 mg/dL (8.5-10.1); CREATININE 0.6 mg/dL (0.6-1.3); PHOSPHORUS 3.6 mg/dL (2.5-4.9); POTASSIUM 3.6 mmol/L (3.5-5.1)
--- NOTE | 2022-10-15 06:40 | NUR ---
RN CLOSING NOTES: PATIENT IN BED, AWAKE, ALERT/ORIENTED X4 AND VERBALLY RESPONSIVE. ON O2 AT 2L/MIN VIA N/C AND PT TOLERATED WELL. O2 SAT 97%. BREATHING EVEN AND UNLABORED. IV ACCES ON PARKER MIDLINE#18G INTACT AND PATIENT. NO S/S OF INFILTRATIONS. NO C/O PAIN OR DISCOMFORT. NO ACUTE DISTRESS. ABLE TO AMBULATE TO THE RESTROOM WITH ASSISTANCE. ALL DUE MEDS GIVEN ORDERED. ALL SAFETY MEASURES IN PLACE. SIDE RAILS UP X2, BED IN LOWEST POSITION AND LOCKED. PLACE CALL LIGHT WITH IN REACH. WILL ENDORSE TO MORNING SHIFT NURSE.
--- NOTE | 2022-10-15 07:53 | NUR ---
RN OPENING NOTES: RECEIVED PATIENT SLEEPING IN BED, ALERT/ORIENTED X4 AND VERBALLY RESPONSIVE WHEN AWAKE, ON O2 AT 2L/MIN VIA N/C AND PT TOLERATED WELL. BREATHING EVEN AND UNLABORED. IV ACCES ON PARKER MIDLINE#18G INTACT AND PATIENT. NO S/S OF INFILTRATIONS. NO C/O PAIN OR DISCOMFORT AT THIS TIME, NO ACUTE DISTRESS. ON TELE MONITORING SR READING HR 88. ABLE TO AMBULATE TO THE RESTROOM WITH ASSISTANCE. ALL SAFETY MEASURES IN PLACE. SIDE RAILS UP X2, BED IN LOWEST POSITION AND LOCKED. PLACE CALL LIGHT WITH IN REACH. WILL CONTINUE PLAN OF CARE.
[2022-10-15 08:00] VITALS: BP 93/57
[2022-10-15] MEDS: DOCUSATE SODIUM 100 MG CAPSULE PO SCH ×2 (08:05→16:03)
[2022-10-15] MEDS: ENOXAPARIN SODIUM 40 MG/0.4 ML DISP.SYRIN SQ SCH (08:06)
[2022-10-15] MEDS ORDERED: LEVOFLOXACIN (250MG) 250 MG TABLET PO SCH (10:00)
[2022-10-15 12:00] VITALS: BP 95/60
[2022-10-15 15:34] LABS: BAND % (MANUAL) 2 % (0.0-5.0); EOSINOPHILS % (MANUAL) 3 % (0-4); LYMPHOCYTES % (MANUAL) 29 % (16-48); MONOCYTES % (MANUAL) 10 % (0-11.0); NEUTROPHILS % (MANUAL) 56 (42-76)
[2022-10-15 16:00] VITALS: BP 97/64
[2022-10-15] MEDS ORDERED: LEVO750T46 PO (17:25)
--- NOTE | 2022-10-15 18:28 | NUR ---
COMPRESSOR ASSEMBLER NOTES PATIENT SIGNED ALL DISCHARGE PAPER WORKS, PATIENT CONFIRMED UNDERSTANDING, MIDLINE REMOVED, TOLERATED WELL. PATIENT LEFT THE HOSPITAL VIA PRIVATE CAR STABLE. ALL PERSONAL BELONGINGS RELEASED TO THE PATIENT.
== END 2022-10-15 18:36 | disposition home or self-care (01) | DRG 137 ==
LOC: ER 21:27 → TELE1 10-11 00:26 → ICU 10-11 06:48 → TELE1 10-14 10:24
PROVIDERS: ADMIT Internal Medicine; ATTEND Internal Medicine
PROC: 05HB33Z Insertion of Infusion Device into Right Basilic Vein, Percutaneous Approach (ICD-10-PCS; principal; 2022-10-11)
DX: J15.6 Pneumonia due to other Gram-negative bacteria (principal); J96.01 Acute respiratory failure with hypoxia; E43 Unspecified severe protein-calorie malnutrition; E87.1 Hypo-osmolality and hyponatremia; Z20.822 Contact with and (suspected) exposure to COVID-19; R74.01 Elevation of levels of liver transaminase levels; E87.6 Hypokalemia; E88.09 Other disorders of plasma-protein metabolism, not elsewhere classified; J81.1 Chronic pulmonary edema; I10 Essential (primary) hypertension; Z79.899 Other long term (current) drug therapy; Z28.310 Unvaccinated for COVID-19; E83.39 Other disorders of phosphorus metabolism
CPT/HCPCS: 36410; 36415; 71045-TC; 80048-TC; 80053-TC; 83605-TC; 83735-TC; 84100-TC; 84703-TC; 85025-TC; 86225; 86235; 87040-TC; 87081-TC; 87449; 87806; 94799-TC; C9803; G0378; J0456; J0692; J0696; J1650; J1885; J1956; J2270; J2405; J2920; J3475; J3490; J7030; J7040; J7050; J7060; Q9967; U0003